=== PATIENT | male | born 1950 | race Caucasian/White ===

== ENCOUNTER 2017-12-09 07:17 | Emergency (ER) | payer MEDICARE ==
[~2017-12-09] VITALS: Ht 185.4 cm; Wt 138.1 kg
[2017-12-09] MEDS ORDERED: DIAZEPAM 5 MG TABLET PO ONE (09:00)
[2017-12-09] MEDS ORDERED: DIAZEPAM 5 MG TABLET ONE (09:06)
[2017-12-09] MEDS ORDERED: OXYcodone/APAP 10/325MG TABLET PO ONE (11:00)
[2017-12-09] MEDS ORDERED: OXYcodone/APAP 10/325MG TABLET ONE (11:04)
[2017-12-09 11:52] VITALS: BP 143/82
== END 2017-12-09 11:55 | disposition home or self-care (01) ==
LOC: ED 10:14
DX: M51.16 Intervertebral disc disorders with radiculopathy, lumbar region (principal); Z87.891 Personal history of nicotine dependence
CPT/HCPCS: 72148; 99284

== ENCOUNTER → 2017-12-16 | Outpatient (CLI) | payer MEDICARE ==
[~2017-12-16] MED LIST: AZIL40TA PO; OMEP-110 PO; TAMS0.4C2 PO
[2017-12-16 13:34] LABS: BASOPHILS # (AUTO) 0.01 x10^3/uL (0-0.1); BASOPHILS % (AUTO) 0 % (0-1); EOSINOPHILS # (AUTO) 0.07 x10^3/uL (0-0.4); EOSINOPHILS % (AUTO) 1 % (1-7); LYMPHOCYTES # (AUTO) 2.28 x10^3/uL (1-3.4); LYMPHOCYTES % (AUTO) 18 % (22-44); MD NO; MEAN CORPUSCULAR HEMOGLOBIN 31.8 pg (27.5-34.5); MEAN CORPUSCULAR HGB CONC 33.6 g/dL (33.2-36.2); MEAN CORPUSCULAR VOLUME 94.6 fL (81-97); MEAN PLATELET VOLUME 8.8 fL (7.4-10.4); MONOCYTES # (AUTO) 0.76 x10^3/uL (0.2-0.8); MONOCYTES % (AUTO) 6 % (2-9); NEUTROPHILS # (AUTO) 9.37 x10^3/uL (1.8-6.8); NEUTROPHILS % (AUTO) 75 % (42-75); PLATELET COUNT 200 x10^3/uL (130-400); RED BLOOD COUNT 4.44 x10^6/uL (4.38-5.82); RED CELL DISTRIBUTION WIDTH 14.5 % (9.4-14.8)
[2017-12-16 13:40] LABS: ALANINE AMINOTRANSFERASE 26 U/L (12-78); ALBUMIN 3.5 g/dL (3.4-5.0); ANION GAP 8 mmol/L (5-15); CALCIUM 8.8 mg/dL (8.5-10.1); CHLORIDE 106 mmol/L (98-107); CREATININE 1.02 mg/dL (0.7-1.3)
[2017-12-16 13:42] LABS: ALKALINE PHOSPHATASE 95 U/L (45-117); BILIRUBIN,TOTAL 0.6 mg/dL (0.2-1.0); TOTAL PROTEIN 7.5 g/dL (6.4-8.2)
[2017-12-16 14:03] LABS: MICROSCOPIC NOT IND
== END | disposition home or self-care (01) ==
LOC: STAR 12:11
PROVIDERS: ATTEND Student in an Organized Health Care Education/Training Program
DX: Z01.818 Encounter for other preprocedural examination (principal); N40.1 Benign prostatic hyperplasia with lower urinary tract symptoms; R39.12 Poor urinary stream
CPT/HCPCS: 36415; 80053; 81003; 85025; 87077; 87086; 87186; 93005

== ENCOUNTER 2017-12-25 07:51 | Observation (INO) | payer MEDICARE ==
[~2017-12-25] VITALS: Ht 185.4 cm; Wt 140.4 kg
[2017-12-25] MEDS ORDERED: LACTATED RINGERS 1,000 ML IV SCH (08:06)
[2017-12-25] MEDS ORDERED: ACETAMINOPHEN 500 MG TABLET PO ONE (08:15)
[2017-12-25 08:22] VITALS: BP 181/115
[2017-12-25] MEDS ORDERED: GABAPENTIN 300 MG CAPSULE PO ONE (08:30)
[2017-12-25] MEDS ORDERED: ONDANSETRON ODT 8 MG PO ONE (08:30)
[2017-12-25] MEDS ORDERED: MIDAZOLAM 1 MG/ML, 2ML ONE (10:05)
[2017-12-25] MEDS ORDERED: FENTANYL PF 250 MCG/5ML ONE (10:05)
[2017-12-25] MEDS ORDERED: AMPICILLIN 1 GM ONE (10:26)
[2017-12-25] MEDS ORDERED: AMPICILLIN 2 GM ONE (10:28)
[2017-12-25] MEDS ORDERED: GENTAMICIN 80 MG/2 ML ONE ×3 (10:46→10:50)
[2017-12-25] MEDS ORDERED: ALBUTEROL/IPRATROPIUM 2.5MG/0.5MG, 3 ML NPPB PRN (11:00)
[2017-12-25] MEDS ORDERED: SCOPOLAMINE PATCH, 1.5MG PATCH.TD72 TD PRN (11:00)
[2017-12-25] MEDS ORDERED: ONDANSETRON ODT 8 MG PO PRN (11:00)
[2017-12-25] MEDS ORDERED: hydrALAzine 20 MG/ML, 1ML IV PRN (11:00)
[2017-12-25] MEDS ORDERED: FENTANYL PF 100 MCG/2ML IV PRN (11:00)
[2017-12-25] MEDS ORDERED: MIDAZOLAM 1 MG/ML, 2ML IV PRN (11:00)
[2017-12-25] MEDS ORDERED: HYDROmorphone 2 MG/ML, 1ML IV PRN ×2 (11:00→15:30)
[2017-12-25] MEDS ORDERED: LABETALOL 5MG/ML, 20ML IV PRN (11:00)
[2017-12-25] MEDS ORDERED: OXYcodone 5 MG/5 ML ORAL.SOL UDC PO PRN (11:00)
[2017-12-25] MEDS ORDERED: PROMETHAZINE 25 MG SUPP PR PRN (11:00)
[2017-12-25] MEDS ORDERED: MEPERIDINE/PF 25MG/0.5ML IVPush PRN (11:00)
[2017-12-25] MEDS ORDERED: DEXAMETHASONE 4 MG/ML, 1ML ONE (12:17)
[2017-12-25] MEDS ORDERED: PROPOFOL 10 MG/ML, 20ML ONE (12:17)
[2017-12-25 13:19] LABS: BASOPHILS # (AUTO) 0.01 x10^3/uL (0-0.1); BASOPHILS % (AUTO) 0 % (0-1); EOSINOPHILS # (AUTO) 0.09 x10^3/uL (0-0.4); EOSINOPHILS % (AUTO) 1 % (1-7); LYMPHOCYTES # (AUTO) 0.83 x10^3/uL (1-3.4); LYMPHOCYTES % (AUTO) 13 % (22-44); MD NO; MEAN CORPUSCULAR HGB CONC 33.4 g/dL (33.2-36.2); MEAN CORPUSCULAR VOLUME 95.8 fL (81-97); MEAN PLATELET VOLUME 7.8 fL (7.4-10.4); MONOCYTES # (AUTO) 0.12 x10^3/uL (0.2-0.8); MONOCYTES % (AUTO) 2 % (2-9); NEUTROPHILS # (AUTO) 5.28 x10^3/uL (1.8-6.8); NEUTROPHILS % (AUTO) 84 % (42-75); PLATELET COUNT 150 x10^3/uL (130-400); RED BLOOD COUNT 3.93 x10^6/uL (4.38-5.82); RED CELL DISTRIBUTION WIDTH 14.9 % (9.4-14.8)
[2017-12-25 13:29] LABS: ANION GAP 7 mmol/L (5-15); CALCIUM 8.4 mg/dL (8.5-10.1); CHLORIDE 108 mmol/L (98-107)
[2017-12-25] MEDS: SODIUM CHLORIDE 0.9% 1,000 ML IV SCH (15:36)
[2017-12-25] MEDS ORDERED: ONDANSETRON 2MG/ML, 2ML IV PRN (16:00)
[2017-12-25] MEDS ORDERED: OPIUM/BELLADONNA SUPP.RECT 16.2-30 MG PR PRN (16:00)
[2017-12-25] MEDS ORDERED: ACETAMINOPHEN 325 MG TABLET PO PRN (16:00)
[2017-12-25] MEDS ORDERED: OXYBUTYNIN CHLORIDE 5 MG TABLET PO PRN (16:00)
[2017-12-25] MEDS: AMPICILLIN 2 GM in SODIUM CHLORIDE 0.9% 100 ML IV SCH ×2 (17:42→22:54)
[2017-12-25 20:37] VITALS: BP 117/62
[2017-12-25] MEDS: OXYcodone 5 MG/5 ML ORAL.SOL UDC PO PRN (22:06)
[2017-12-25 23:49] VITALS: BP 119/67
[2017-12-26] MEDS: SODIUM CHLORIDE 0.9% 1,000 ML IV SCH ×3 (01:39→17:28)
[2017-12-26] MEDS: OXYcodone 5 MG/5 ML ORAL.SOL UDC PO PRN (03:21)
[2017-12-26 03:50] VITALS: BP 131/70
[2017-12-26] MEDS: OXYBUTYNIN CHLORIDE 5 MG TABLET PO PRN ×3 (03:53→23:30)
[2017-12-26] MEDS: AMPICILLIN 2 GM in SODIUM CHLORIDE 0.9% 100 ML IV SCH (05:01)
[2017-12-26 08:05] VITALS: BP 125/71
[2017-12-26] MEDS: AMOXICILLIN/CLAV 875-125MG TABLET PO SCH ×2 (08:55→20:47)
[2017-12-26 13:28] VITALS: BP 133/76
[2017-12-26 19:00] VITALS: BP 138/65
[2017-12-27 01:10] VITALS: BP 139/82
[2017-12-27] MEDS: OXYcodone 5 MG/5 ML ORAL.SOL UDC PO PRN ×3 (04:07→12:34)
[2017-12-27 07:00] VITALS: BP 143/78
[2017-12-27] MEDS: AMOXICILLIN/CLAV 875-125MG TABLET PO SCH (08:06)
[2017-12-27] MEDS: OXYBUTYNIN CHLORIDE 5 MG TABLET PO PRN (08:07)
[2017-12-27] MEDS ORDERED: AMOX1TAB61 PO (10:09)
[2017-12-27] MEDS ORDERED: OXYB5TAB7 PO (10:43)
[2017-12-27] MEDS ORDERED: POLYETHYLENE GLYCOL 17 GM PACKET PO ONE (13:00)
[2017-12-27 13:15] VITALS: BP 128/78
[2017-12-27] MEDS ORDERED: SODIUM CHLORIDE 0.9% 1,000 ML IV SCH (18:00)
== END 2017-12-27 13:35 | disposition home or self-care (01) ==
LOC: OUT 07:51 → 4NOR 14:25 → OUT 14:42
PROVIDERS: ADMIT Student in an Organized Health Care Education/Training Program; ATTEND Student in an Organized Health Care Education/Training Program
DX: N40.1 Benign prostatic hyperplasia with lower urinary tract symptoms (principal); N13.8 Other obstructive and reflux uropathy; Z90.79 Acquired absence of other genital organ(s); N32.89 Other specified disorders of bladder
CPT/HCPCS: 36415; 52648; 80048; 85025; 88305; 96365; 96366; G0378; J0290; J1100; J1580; J2250; J2704; J3010; J7030; J7120; Q0162

== ENCOUNTER 2018-06-28 07:43 | Outpatient (CLI) | payer MEDICARE ==
[~2018-06-28 07:43] MED LIST changes: +AMOX1TAB61 PO; +OXYB5TAB7 PO; +REGADENOSON 0.4 MG/5 ML SYRINGE ONE
== END 2018-06-28 23:59 | disposition home or self-care (01) ==
LOC: CFH 07:43 → CVU 23:59
PROVIDERS: ATTEND Internal Medicine Cardiovascular Disease
DX: I08.8 Other rheumatic multiple valve diseases (principal); I47.1 Supraventricular tachycardia; I11.9 Hypertensive heart disease without heart failure; R00.8 Other abnormalities of heart beat
CPT/HCPCS: 78452; 93017; 93306; A9502; J2785

== ENCOUNTER 2019-05-26 13:19 | Outpatient (CLI) | payer MEDICARE ==
[~2019-05-26 13:19] MED LIST changes: +OXYB5TAB10 PO; -OXYB5TAB7 PO; -REGADENOSON 0.4 MG/5 ML SYRINGE ONE
[2019-05-26] MEDS ORDERED: METO25TA35 PO (14:20)
[2019-05-26] MEDS ORDERED: TRAZ50TA66 PO (14:20)
== END 2019-05-26 23:59 | disposition home or self-care (01) ==
LOC: STAR 13:19
PROVIDERS: ATTEND Internal Medicine Cardiovascular Disease
DX: Z02.9 Encounter for administrative examinations, unspecified (principal)

== ENCOUNTER 2019-05-31 06:23 | Day surgery (SDC) | payer MEDICARE ==
[2019-05-26 14:11] LABS: BASOPHILS # (AUTO) 0.07 x10^3/uL (0-0.1); BASOPHILS % (AUTO) 1 % (0-1); EOSINOPHILS # (AUTO) 0.15 x10^3/uL (0-0.4); EOSINOPHILS % (AUTO) 2 % (1-7); LYMPHOCYTES # (AUTO) 2.41 x10^3/uL (1-3.4); LYMPHOCYTES % (AUTO) 26 % (22-44); MD NO; MEAN CORPUSCULAR HEMOGLOBIN 28.2 pg (27.5-34.5); MEAN CORPUSCULAR HGB CONC 31.8 g/dL (33.2-36.2); MEAN CORPUSCULAR VOLUME 88.7 fL (81-97); MEAN PLATELET VOLUME 8.4 fL (7.4-10.4); MONOCYTES # (AUTO) 0.63 x10^3/uL (0.2-0.8); MONOCYTES % (AUTO) 7 % (2-9); NEUTROPHILS % (AUTO) 65 % (42-75); PLATELET COUNT 205 x10^3/uL (130-400); RED BLOOD COUNT 4.47 x10^6/uL (4.38-5.82); RED CELL DISTRIBUTION WIDTH 20.7 % (9.4-14.8)
[2019-05-26 14:21] LABS: ANION GAP 6 mmol/L (5-15); CALCIUM 8.7 mg/dL (8.5-10.1); CHLORIDE 109 mmol/L (98-107); CREATININE 0.99 mg/dL (0.7-1.3)
[~2019-05-31] VITALS: Ht 182.9 cm; Wt 129.6 kg
[~2019-05-31 06:23] MED LIST changes: +METO25TA35 PO; +TRAZ50TA66 PO
[2019-05-31] MEDS ORDERED: SODIUM CHLORIDE 0.9% 1,000 ML IV SCH (06:32)
[2019-05-31] MEDS ORDERED: SODIUM CHLORIDE 0.9% 1,000 ML IV ONE (07:12)
[2019-05-31] MEDS ORDERED: MIDAZOLAM 1 MG/ML, 2ML ONE ×2 (07:28→08:53)
[2019-05-31] MEDS ORDERED: FENTANYL PF 100 MCG/2ML ONE (07:28)
[2019-05-31] MEDS ORDERED: ISOPROTERENOL 0.2MG/ML, 5ML ONE (07:28)
[2019-05-31] MEDS ORDERED: ADENOSINE 6 MG/2 ML ONE (07:28)
[2019-05-31] MEDS ORDERED: LIDOCAINE 1%, 20ML ONE ×2 (07:29→08:41)
[2019-05-31] MEDS ORDERED: ONDANSETRON 2MG/ML, 2ML IVPush PRN (07:30)
[2019-05-31] MEDS ORDERED: CHLORHEXIDINE 15 ML UDC MM PRN (07:30)
[2019-05-31] MEDS ORDERED: AMLODIPINE 10 MG TAB ONE (10:54)
[2019-05-31] MEDS ORDERED: AMLODIPINE 10 MG TAB PO ONE (11:00)
[2019-05-31] MEDS ORDERED: TRAZODONE 50MG TABLET PO SCH (21:00)
[2019-05-31] MEDS ORDERED: METOPROLOL TARTRATE 25 MG TAB PO SCH (21:00)
[2019-06-01] MEDS ORDERED: OMEPRAZOLE 20 MG CAPSULE.DR PO SCH (09:00)
== END 2019-05-31 15:11 | disposition home or self-care (01) ==
LOC: CACL 06:23
PROVIDERS: ATTEND Internal Medicine Cardiovascular Disease
DX: I47.1 Supraventricular tachycardia (principal); K21.9 Gastro-esophageal reflux disease without esophagitis; G47.33 Obstructive sleep apnea (adult) (pediatric)
CPT/HCPCS: 36415; 71046; 80048; 85025; 93005; 93613; 93621; 93623; 93653; 99156; 99157; C1730; C1766; C1894; C2630; J2250; J3010; J0153

== ENCOUNTER → 2019-10-04 | Outpatient (CLI) | payer MEDICARE ==
[~2019-10-04] MED LIST changes: +OMNIPAQUE 350 MG/ML, 100ML BOTTLE ONE
== END | disposition home or self-care (01) ==
LOC: CFH 08:33
PROVIDERS: ATTEND Family Medicine
DX: K40.90 Unilateral inguinal hernia, without obstruction or gangrene, not specified as recurrent (principal); N40.0 Benign prostatic hyperplasia without lower urinary tract symptoms
CPT/HCPCS: 74177; Q9967

== ENCOUNTER 2020-03-12 08:00 | Outpatient (CLI) | payer MEDICARE ==
[~2020-03-12 08:00] MED LIST changes: -OMNIPAQUE 350 MG/ML, 100ML BOTTLE ONE
[2020-03-12] MEDS ORDERED: CHOL10003 PO (13:07)
[2020-03-12] MEDS ORDERED: MELA5TAB14 PO (13:07)
[2020-03-12] MEDS ORDERED: ASCO500T8 PO (13:07)
[2020-03-12] MEDS ORDERED: TURM538C PO (13:07)
[2020-03-12] MEDS ORDERED: TIZA4CAP PO (13:07)
== END 2020-03-12 23:59 | disposition home or self-care (01) ==
LOC: STAR 08:00
PROVIDERS: ATTEND Colon & Rectal Surgery
DX: Z01.818 Encounter for other preprocedural examination (principal); K40.91 Unilateral inguinal hernia, without obstruction or gangrene, recurrent; Z20.828 Contact with and (suspected) exposure to other viral communicable diseases
CPT/HCPCS: 93005; U0003

== ENCOUNTER 2020-03-15 06:14 | Day surgery (SDC) | payer MEDICARE ==
[~2020-03-15] VITALS: Ht 182.9 cm; Wt 137.4 kg
[~2020-03-15 06:14] MED LIST changes: +ASCO500T8 PO; +CHOL10003 PO; +MELA5TAB14 PO; +TIZA4CAP PO; +TURM538C PO
[2020-03-15] MEDS ORDERED: CHLORHEXIDINE 15 ML UDC MM STA (06:35)
[2020-03-15 06:40] VITALS: BP 167/97
[2020-03-15] MEDS ORDERED: CHLORHEXIDINE 15 ML UDC ONE (06:44)
[2020-03-15] MEDS ORDERED: ONDANSETRON 2MG/ML, 2ML ONE (06:50)
[2020-03-15] MEDS ORDERED: NEOSTIGMINE 1 MG/ML, 10ML ONE (06:50)
[2020-03-15] MEDS ORDERED: PROPOFOL 10 MG/ML, 20ML ONE (06:50)
[2020-03-15] MEDS ORDERED: FENTANYL PF 100 MCG/2ML ONE ×2 (06:50→09:03)
[2020-03-15] MEDS ORDERED: SUCCINYLCHOLINE 20 MG/ML, 10ML ONE (06:50)
[2020-03-15] MEDS ORDERED: ROCURONIUM 10MG/ML,5ML ONE (06:50)
[2020-03-15] MEDS ORDERED: CEFAZOLIN 1,000 MG ONE ×2 (06:50→08:02)
[2020-03-15] MEDS ORDERED: MIDAZOLAM 1 MG/ML, 2ML ONE (06:50)
[2020-03-15] MEDS ORDERED: GLYCOPYRROLATE 0.2MG/1ML, 5ML ONE (06:50)
[2020-03-15] MEDS ORDERED: LACTATED RINGERS 1,000 ML IV SCH (07:00)
[2020-03-15] MEDS ORDERED: BUPIVACAINE/PF 0.25% ONE (07:09)
[2020-03-15] MEDS ORDERED: EPINEPHRINE 1 MG/ML, 1ML ONE (07:10)
[2020-03-15] MEDS ORDERED: DEXAMETHASONE 4 MG/ML, 1ML ONE (07:29)
[2020-03-15] MEDS ORDERED: hydrALAzine 20 MG/ML, 1ML ONE (07:29)
[2020-03-15] MEDS ORDERED: MEPERIDINE/PF 25MG/0.5ML IVPush PRN (07:30)
[2020-03-15] MEDS ORDERED: HYDROmorphone 1 MG/ML, 1ML INJ IVPush PRN (07:30)
[2020-03-15] MEDS ORDERED: OXYcodone 5 MG/5 ML ORAL.SOL UDC PO PRN (07:30)
[2020-03-15] MEDS ORDERED: PROMETHAZINE 25 MG/ML, 1ML IVPush PRN (07:30)
[2020-03-15] MEDS ORDERED: HYDROcodone/APAP 7.5-325MG/15ML UDC PO PRN (07:30)
[2020-03-15] MEDS ORDERED: BUPIVACAINE/PF-EPI 0.25% 1:200K INFIL ONE (08:08)
[2020-03-15] MEDS: FENTANYL PF 100 MCG/2ML IV PRN ×4 (09:00→09:30)
[2020-03-15] MEDS ORDERED: OXYcodone 5 MG/5 ML ORAL.SOL UDC ONE (09:03)
[2020-03-15] MEDS ORDERED: OXYC-302 PO (10:01)
[2020-03-15] MEDS ORDERED: POLY17PO5 PO (10:04)
== END 2020-03-15 10:40 | disposition home or self-care (01) ==
LOC: OUT 06:14
PROVIDERS: ATTEND Colon & Rectal Surgery
DX: K40.91 Unilateral inguinal hernia, without obstruction or gangrene, recurrent (principal); D17.6 Benign lipomatous neoplasm of spermatic cord; I10 Essential (primary) hypertension; G47.33 Obstructive sleep apnea (adult) (pediatric); N40.0 Benign prostatic hyperplasia without lower urinary tract symptoms; E66.01 Morbid (severe) obesity due to excess calories; Z68.41 Body mass index [BMI] 40.0-44.9, adult; Z90.49 Acquired absence of other specified parts of digestive tract; Z82.49 Family history of ischemic heart disease and other diseases of the circulatory system; Z80.8 Family history of malignant neoplasm of other organs or systems
CPT/HCPCS: 49651; C1781; J0171; J0330; J0360; J0690; J1100; J2250; J2405; J2704; J2710; J3010; J7120

== ENCOUNTER 2020-04-30 19:48 | Emergency (ER) | payer MEDICARE ==
[~2020-04-30] VITALS: Ht 182.9 cm; Wt 139.9 kg
[~2020-04-30 19:48] MED LIST changes: +OXYC1TAB14 PO; +POLY17PO5 PO
[2020-04-30 19:54] VITALS: BP 190/89
[2020-04-30] MEDS ORDERED: ONDANSETRON 2MG/ML, 2ML IVPush ONE (20:00)
[2020-04-30] MEDS ORDERED: SODIUM CHLORIDE FLUSH 10ML SYR IVF ONE (20:00)
[2020-04-30] MEDS ORDERED: MORPHINE SULFATE 4 MG/ML, 1ML IVPush PRN (20:00)
[2020-04-30 20:56] LABS: MICROSCOPIC INDICATED
[2020-04-30 21:22] LABS: BASOPHILS % (AUTO) 0 % (0-1); EOSINOPHILS % (AUTO) 3 % (1-7); LYMPHOCYTES % (AUTO) 16 % (22-44); MEAN CORPUSCULAR HEMOGLOBIN 30.6 pg (27.5-34.5); MEAN CORPUSCULAR HGB CONC 33.3 g/dL (33.2-36.2); MEAN PLATELET VOLUME 8.3 fL (7.4-10.4); MONOCYTES % (AUTO) 8 % (2-9); NEUTROPHILS % (AUTO) 73 % (42-75); PLATELET COUNT 202 x10^3/uL (130-400); RED BLOOD COUNT 4.65 x10^6/uL (4.38-5.82); RED CELL DISTRIBUTION WIDTH 15.7 % (9.4-14.8)
[2020-04-30 21:24] LABS: MD NO
[2020-04-30 21:32] LABS: ALBUMIN 3.6 g/dL (3.4-5.0); ANION GAP 5 mmol/L (5-15); CALCIUM 9.1 mg/dL (8.5-10.1); CHLORIDE 107 mmol/L (98-107)
[2020-04-30 21:37] LABS: ALANINE AMINOTRANSFERASE 23 U/L (12-78); BILIRUBIN,TOTAL 0.5 mg/dL (0.2-1.0); CREATININE 1.58 mg/dL (0.7-1.3)
[2020-04-30 21:38] LABS: ALKALINE PHOSPHATASE 141 U/L (45-117)
--- NOTE | 2020-04-30 23:15 | NUR ---
not in lobby
--- NOTE | 2020-04-30 23:22 | NUR ---
pt not in lobby
--- NOTE | 2020-04-30 23:41 | NUR ---
not in lobby
--- NOTE | 2020-05-01 00:08 | NUR ---
called and lm on vm for pt to come back in per ciera
--- NOTE | 2020-05-01 08:59 | NUR ---
PT INFORMED OF ABNORMAL UA. RECOMMENDED PT RETURN TO ER TO COMPLETE WORKUP
== END 2020-04-30 23:42 | disposition left against medical advice (07) ==
LOC: ED 23:36
DX: N30.01 Acute cystitis with hematuria (principal)
CPT/HCPCS: 36415; 80053; 81001; 83690; 85025; 87086; 99283

== ENCOUNTER 2020-05-01 11:02 | Observation (INO) | payer MEDICARE ==
[~2020-05-01] VITALS: Ht 182.9 cm; Wt 133.4 kg
--- NOTE | 2020-05-01 11:33 | NUR ---
Assumed care of patient. Seen last night, but eloped prior to CT or diagnosis. C/O RLQ pain. VSS. Provided with blanket. Will continue to monitor.
--- NOTE | 2020-05-01 12:13 | NUR ---
Ambulated with a steady gait to the restroom. UA sent to lab.
[2020-05-01 12:37] LABS: BASOPHILS % (AUTO) 0 % (0-1); EOSINOPHILS % (AUTO) 2 % (1-7); LYMPHOCYTES % (AUTO) 11 % (22-44); MEAN CORPUSCULAR HEMOGLOBIN 30.3 pg (27.5-34.5); MEAN CORPUSCULAR HGB CONC 32.7 g/dL (33.2-36.2); MEAN PLATELET VOLUME 8.4 fL (7.4-10.4); MONOCYTES % (AUTO) 6 % (2-9); NEUTROPHILS % (AUTO) 81 % (42-75); PLATELET COUNT 205 x10^3/uL (130-400); RED CELL DISTRIBUTION WIDTH 15.4 % (9.4-14.8)
[2020-05-01 12:38] LABS: MD NO
[2020-05-01 12:44] LABS: MICROSCOPIC INDICATED
[2020-05-01 12:49] LABS: ALANINE AMINOTRANSFERASE 25 U/L (12-78); ALBUMIN 3.4 g/dL (3.4-5.0); ANION GAP 5 mmol/L (5-15); CALCIUM 8.7 mg/dL (8.5-10.1); CHLORIDE 110 mmol/L (98-107); CREATININE 1.46 mg/dL (0.7-1.3)
[2020-05-01 12:51] LABS: ALKALINE PHOSPHATASE 117 U/L (45-117); BILIRUBIN,TOTAL 0.7 mg/dL (0.2-1.0); TOTAL PROTEIN 7.4 g/dL (6.4-8.2)
--- NOTE | 2020-05-01 13:16 | NUR ---
Patient to CT.
[2020-05-01] MEDS ORDERED: OMNIPAQUE 350 MG/ML, 150 ML BOTTLE ONE (13:28)
--- NOTE | 2020-05-01 13:33 | NUR ---
Back from CT. No needs.
--- NOTE | 2020-05-01 13:42 | NUR ---
REPORT RECEIVED FROM ANGELA JOY. PT RESTING ON [facility], MONITORING IN PLACE, CALL [facility].
[2020-05-01] MEDS ORDERED: CEFTRIAXONE PMX 1GM/50ML 50 ML ONE (13:45)
[2020-05-01] MEDS ORDERED: CEFTRIAXONE PMX 1GM/50ML 50 ML IV ONE (14:00)
[2020-05-01] MEDS ORDERED: KETOROLAC 30 MG/1 ML ONE (14:24)
[2020-05-01] MEDS ORDERED: KETOROLAC 30 MG/1 ML IVPush ONE (15:00)
[2020-05-01] MEDS ORDERED: CHLORHEXIDINE 15 ML UDC ONE (15:18)
[2020-05-01] MEDS ORDERED: ACETAMINOPHEN 325 MG TABLET PO PRN ×2 (15:30→17:00)
[2020-05-01] MEDS ORDERED: HYDROcodone/APAP 5/325 TABLET PO PRN (15:30)
[2020-05-01] MEDS ORDERED: KETOROLAC 30 MG/1 ML IV PRN (15:30)
[2020-05-01] MEDS ORDERED: METHOCARBAMOL 500 MG TABLET PO PRN (15:30)
[2020-05-01] MEDS ORDERED: LABETALOL 5MG/ML, 20ML IVPush PRN (15:30)
[2020-05-01] MEDS ORDERED: TEMAZEPAM 15 MG CAPSULE PO PRN (15:30)
[2020-05-01] MEDS ORDERED: morphine SULFATE 10 MG/ML, 1ML IVPush PRN (15:30)
[2020-05-01] MEDS ORDERED: CHLORHEXIDINE 15 ML UDC MM ONE (15:30)
[2020-05-01] MEDS ORDERED: ONDANSETRON 2MG/ML, 2ML IVPush PRN ×2 (15:30→17:00)
[2020-05-01] MEDS ORDERED: DOCUSATE 100 MG CAPSULE PO PRN (15:30)
[2020-05-01 15:47] VITALS: BP 167/83
[2020-05-01] MEDS ORDERED: MIDAZOLAM 1 MG/ML, 2ML ONE (16:24)
[2020-05-01] MEDS ORDERED: FENTANYL PF 250 MCG/5ML ONE (16:25)
[2020-05-01] MEDS ORDERED: SUGAMMADEX 200 MG/2 ML IVPush ONE (16:52)
[2020-05-01] MEDS ORDERED: ONDANSETRON 2MG/ML, 2ML ONE (16:52)
[2020-05-01] MEDS ORDERED: ROCURONIUM 10 MG/ML,10ML ONE (16:52)
[2020-05-01] MEDS ORDERED: PROPOFOL 10 MG/ML, 20ML ONE (16:52)
[2020-05-01] MEDS ORDERED: SUCCINYLCHOLINE 20 MG/ML, 10ML ONE (16:52)
[2020-05-01] MEDS ORDERED: hydrALAzine 20 MG/ML, 1ML IV PRN (17:00)
[2020-05-01] MEDS ORDERED: DIAZEPAM 5 MG/ML, 2ML IVPush PRN (17:00)
[2020-05-01] MEDS ORDERED: FENTANYL PF 100 MCG/2ML IV PRN (17:00)
[2020-05-01] MEDS ORDERED: LABETALOL 5MG/ML, 20ML IV PRN (17:00)
[2020-05-01] MEDS ORDERED: OXYcodone 5 MG/5 ML ORAL.SOL UDC PO PRN (17:00)
[2020-05-01] MEDS ORDERED: HYDROmorphone 1 MG/ML, 1ML INJ IVPush PRN (17:00)
[2020-05-01] MEDS ORDERED: PROMETHAZINE 25 MG/ML, 1ML IVPush PRN (17:00)
[2020-05-01] MEDS ORDERED: GUAIFENESIN/DM 200-20MG, 10ML UDC PO PRN (18:39)
[2020-05-01 20:00] VITALS: BP 143/77
[2020-05-01] MEDS: SODIUM CHLORIDE 0.9% 1,000 ML IV SCH (22:58)
[2020-05-01 23:18] VITALS: BP 141/75
[2020-05-02 02:57] VITALS: BP 158/80
[2020-05-02 05:39] LABS: BASOPHILS % (AUTO) 0 % (0-1); EOSINOPHILS % (AUTO) 0 % (1-7); LYMPHOCYTES % (AUTO) 9 % (22-44); MEAN CORPUSCULAR HEMOGLOBIN 30.4 pg (27.5-34.5); MEAN CORPUSCULAR HGB CONC 32.9 g/dL (33.2-36.2); MEAN PLATELET VOLUME 8.7 fL (7.4-10.4); MONOCYTES % (AUTO) 4 % (2-9); NEUTROPHILS % (AUTO) 88 % (42-75); PLATELET COUNT 215 x10^3/uL (130-400); RED CELL DISTRIBUTION WIDTH 15.1 % (9.4-14.8)
[2020-05-02 05:41] LABS: MD NO
[2020-05-02 05:44] LABS: ANION GAP 8 mmol/L (5-15); CALCIUM 8.7 mg/dL (8.5-10.1); CHLORIDE 111 mmol/L (98-107)
[2020-05-02 09:08] VITALS: BP 137/88
[2020-05-02] MEDS ORDERED: SENNA/DOCUSATE TABLET PO SCH (09:30)
[2020-05-02] MEDS ORDERED: PHENAZOPYRIDINE 100 MG TABLET PO PRN (09:30)
[2020-05-02] MEDS ORDERED: MAGNESIUM CITRATE 300ML ORAL SOL PO ONE (09:30)
[2020-05-02] MEDS ORDERED: LEVO750T6 PO (10:29)
[2020-05-02] MEDS ORDERED: TAMS-11 PO (10:29)
[2020-05-02] MEDS ORDERED: TAMSULOSIN 0.4 MG CAP.ER.24H ONE (11:26)
[2020-05-02] MEDS: SODIUM CHLORIDE 0.9% 1,000 ML IV SCH (11:35)
[2020-05-02] MEDS ORDERED: CEFTRIAXONE PMX 1GM/50ML 50 ML IV SCH (14:00)
[2020-05-02 14:33] VITALS: BP 163/90
[2020-05-03] MEDS ORDERED: TAMSULOSIN 0.4 MG CAP.ER.24H PO SCH (09:00)
== END 2020-05-02 15:15 | disposition home or self-care (01) ==
LOC: ED 12:50 → EDIP 15:07 → 4NE 18:35 → DCLOUNGE 05-02 15:08
PROVIDERS: ADMIT Internal Medicine; ATTEND Internal Medicine
DX: N13.6 Pyonephrosis (principal); Z20.822 Contact with and (suspected) exposure to COVID-19; N28.1 Cyst of kidney, acquired; K59.00 Constipation, unspecified; N35.911 Unspecified urethral stricture, male, meatal; N40.0 Benign prostatic hyperplasia without lower urinary tract symptoms; D64.9 Anemia, unspecified; E87.8 Other disorders of electrolyte and fluid balance, not elsewhere classified; N17.9 Acute kidney failure, unspecified; E66.01 Morbid (severe) obesity due to excess calories; R03.0 Elevated blood-pressure reading, without diagnosis of hypertension; Z79.899 Other long term (current) drug therapy; Z90.79 Acquired absence of other genital organ(s)
CPT/HCPCS: 36415; 52332; 74177; 80048; 80053; 81001; 85025; 87077; 87086; 87186; 87635; 93005; 96361; 96365; 96366; 96375; 96376; 99285; C1726; C1758; C2617; G0378; J0330; J0696; J1885; J2250; J2405; J2704; J3010; J7030; Q9967

== ENCOUNTER 2020-05-17 06:25 | Day surgery (SDC) | payer MEDICARE ==
[~2020-05-17] VITALS: Ht 185.4 cm; Wt 136.0 kg
[~2020-05-17 06:25] MED LIST changes: +LEVO750T6 PO; +TAMS-11 PO
[2020-05-17 06:59] VITALS: BP 140/83
[2020-05-17] MEDS ORDERED: CHLORHEXIDINE 15 ML UDC MM ONE (07:00)
[2020-05-17] MEDS ORDERED: LIDOCAINE-MPF 1%, 2ML INFIL ONE (07:00)
[2020-05-17] MEDS ORDERED: LACTATED RINGERS 1,000 ML IV SCH (07:00)
[2020-05-17 07:07] VITALS: BP 140/83
[2020-05-17] MEDS ORDERED: FENTANYL PF 250 MCG/5ML ONE (07:20)
[2020-05-17] MEDS ORDERED: MIDAZOLAM 1 MG/ML, 2ML ONE (07:20)
[2020-05-17 07:56] LABS: INTERNATIONAL NORMALIZED RATIO 1.04 (0.93-1.1); PROTHROMBIN TIME 11.1 Seconds (9.6-11.5)
[2020-05-17] MEDS ORDERED: CEFAZOLIN 1,000 MG ONE (08:17)
[2020-05-17] MEDS ORDERED: NEOSTIGMINE 1 MG/ML, 10ML ONE (08:17)
[2020-05-17] MEDS ORDERED: SUCCINYLCHOLINE 20 MG/ML, 10ML ONE (08:17)
[2020-05-17] MEDS ORDERED: DEXAMETHASONE 4 MG/ML, 1ML ONE (08:17)
[2020-05-17] MEDS ORDERED: PHENYLEPHRINE 10 MG/ML ONE (08:17)
[2020-05-17] MEDS ORDERED: GLYCOPYRROLATE 0.2MG/1ML, 5ML ONE (08:17)
[2020-05-17] MEDS ORDERED: ROCURONIUM 10 MG/ML,10ML ONE (08:17)
[2020-05-17] MEDS ORDERED: ONDANSETRON 2MG/ML, 2ML ONE (08:17)
[2020-05-17] MEDS ORDERED: PROPOFOL 10 MG/ML, 20ML ONE (08:17)
[2020-05-17] MEDS ORDERED: OXYcodone 5 MG/5 ML ORAL.SOL UDC PO PRN (08:30)
[2020-05-17] MEDS ORDERED: METHOCARBAMOL 1,000 MG in DEXTROSE 5% 100 ML IV PRN (08:30)
[2020-05-17] MEDS ORDERED: LABETALOL 5MG/ML, 20ML IV PRN (08:30)
[2020-05-17] MEDS ORDERED: METOCLOPRAMIDE 5 MG/ML, 2ML IVPush PRN (08:30)
[2020-05-17] MEDS ORDERED: PROMETHAZINE 25 MG/ML, 1ML IVPush PRN (08:30)
[2020-05-17] MEDS ORDERED: HALOPERIDOL 5 MG/ML IV PRN (08:30)
[2020-05-17] MEDS ORDERED: FENTANYL PF 100 MCG/2ML IV PRN (08:30)
[2020-05-17] MEDS ORDERED: ONDANSETRON 2MG/ML, 2ML IVPush PRN (08:30)
[2020-05-17] MEDS ORDERED: HYDROmorphone 1 MG/ML, 1ML INJ IVPush PRN (08:30)
[2020-05-17] MEDS ORDERED: hydrALAzine 20 MG/ML, 1ML IV PRN (08:30)
[2020-05-17] MEDS ORDERED: ACETAMINOPHEN 325 MG TABLET PO PRN (08:30)
[2020-05-17] MEDS ORDERED: EPHEDRINE 50 MG/ML, 1ML IVPush PRN (08:30)
[2020-05-17] MEDS ORDERED: DIPHENHYDRAMINE 50 MG/ML, 1ML IVPush PRN (08:30)
[2020-05-17] MEDS ORDERED: METOPROLOL 1 MG/ML, 5ML IV PRN (08:30)
[2020-05-17] MEDS ORDERED: OMNIPAQUE 350 MG/ML, 50 ML BOTTLE ONE (08:49)
== END 2020-05-17 11:10 | disposition home or self-care (01) ==
LOC: OUT 06:25
PROVIDERS: ATTEND Urology
DX: N20.1 Calculus of ureter (principal); I10 Essential (primary) hypertension; G47.33 Obstructive sleep apnea (adult) (pediatric); E66.9 Obesity, unspecified; Z88.8 Allergy status to other drugs, medicaments and biological substances; Z91.018 Allergy to other foods; Z68.39 Body mass index [BMI] 39.0-39.9, adult; Z98.84 Bariatric surgery status; Z79.899 Other long term (current) drug therapy; Z72.89 Other problems related to lifestyle; Z79.2 Long term (current) use of antibiotics; Z20.822 Contact with and (suspected) exposure to COVID-19
CPT/HCPCS: 36415; 52353; 74018; 85610; 87635; C1726; C1758; C1769; J0330; J0690; J1100; J2250; J2370; J2405; J2704; J2710; J3010; J7120; Q9967; 76000

== ENCOUNTER → 2020-09-07 | Outpatient (CLI) | payer MEDICARE ==
[~2020-09-07] MED LIST changes: +OMNIPAQUE 350 MG/ML, 150 ML BOTTLE ONE
== END | disposition home or self-care (01) ==
LOC: CFH 08:37
PROVIDERS: ATTEND Nurse Practitioner Family
DX: N28.1 Cyst of kidney, acquired (principal); K59.00 Constipation, unspecified
CPT/HCPCS: 74177; 82565; Q9967